=== PATIENT | male | born 1955 | race Caucasian/White ===

== ENCOUNTER 2019-09-28 08:14 | Outpatient (CLI) | payer MEDICARE, OTHER ==
[2019-09-29 16:49] LABS: SARS-CoV-2 MS2 Positive; SARS-CoV-2 N Gene Negative; SARS-CoV-2 S Gene Negative; SARS-CoV-2 orf1ab Negative
== END 2019-09-28 08:15 | disposition home or self-care (01) ==
LOC: LABBT 08:14
PROVIDERS: ATTEND Thoracic Surgery (Cardiothoracic Vascular Surgery)
DX: Z01.818 Encounter for other preprocedural examination (principal); Z11.59 Encounter for screening for other viral diseases; I25.10 Atherosclerotic heart disease of native coronary artery without angina pectoris
CPT/HCPCS: 93005; U0003; 87635; 93010

== ENCOUNTER 2019-09-28 12:30 | Inpatient (IN) | payer MEDICARE, OTHER ==
[2019-09-28 14:30] LABS: Hemoglobin 17.9 g/dL (14.0-18.0); Mean Corpuscular HGB CONC 33.8 g/dL (32.0-36.0); Mean Corpuscular Hemoglobin 31.4 pg (27.0-31.0); Mean Corpuscular Volume 92.8 fL (78.0-98.0); Mean Platelet Volume 8.3 fL (7.4-10.4); Platelet Count 220 thou/uL (130-400); RBC Distribution Width 12.5 % (11.5-14.5); Red Blood Cell (RBC) Count 5.69 mill/uL (4.70-6.10); White Blood Cell (WBC) Count 6.8 thou/uL (4.8-10.8)
[2019-09-28 14:58] LABS: Anion Gap 14 mmol/L (10-20); BUN (Urea Nitrogen) 41 mg/dL (8.4-25.7); Calc. Creatinine Clearance 0 mL/min (70-130); Calcium 10.2 mg/dL (7.8-10.44); Carbon Dioxide 27 mmol/L (23-31); Chloride 100 mmol/L (98-107); Estimated GFR-MDRD 38; Glucose 139 mg/dL (80-115); Potassium 3.7 mmol/L (3.5-5.1); Sodium 137 mmol/L (136-145)
[2019-10-02] MEDS ORDERED: Fentanyl 100 MCG/2 ML VIAL ONE (06:32)
[2019-10-02] MEDS ORDERED: Midazolam HCl 5 mg/5 ml Vial ONE (06:32)
[2019-10-02] MEDS ORDERED: Dexmedetomidine 200 MCG/2 ML VIAL ONE (06:32)
[2019-10-02] MEDS ORDERED: Midazolam HCl 2 mg/2 ml Vial ONE (06:32)
[2019-10-02] MEDS ORDERED: Vecuronium 10 MG VIAL ONE ×2 (06:32→09:41)
[2019-10-02] MEDS ORDERED: Albumin 5% 500 ML ONE (06:38)
[2019-10-02] MEDS ORDERED: Clindamycin/D5W 900 mg/50 ml Premix Bag ONE (07:08)
[2019-10-02] MEDS ORDERED: Levofloxacin 500 mg/D5W 100 ml Premix Bag ONE (07:08)
[2019-10-02] MEDS ORDERED: Heparin 10,000 UNITS/1 ML VIAL 30,000 UNITS in Sodium Chloride 0.9% 1,000 ML FS SCH (07:15)
[2019-10-02] MEDS ORDERED: Insulin Regular 300 UNITS/3 ML VIAL ONE (08:31)
[2019-10-02 08:55] VITALS: BMI 39.3
[2019-10-02] MEDS ORDERED: Thrombin 5000 UNITS/5 ML VIAL ONE (09:41)
[2019-10-02] MEDS ORDERED: Calcium Chloride 1 GM/10 ML Abboject SYRINGE ONE (09:41)
[2019-10-02] MEDS ORDERED: Lidocaine 2% PF 5 ML VIAL ONE (09:41)
[2019-10-02] MEDS ORDERED: Ketorolac Tromethamine 30 MG/ML VIAL ONE (09:41)
[2019-10-02] MEDS ORDERED: Papaverine 60 MG/2 ML VIAL ONE (09:41)
[2019-10-02] MEDS ORDERED: Nitroglycerin 50 MG/250 ML BOT ONE (09:41)
[2019-10-02] MEDS ORDERED: Aminocaproic Acid 5 GM/20 ML VIAL ONE (09:41)
[2019-10-02] MEDS ORDERED: Ondansetron PF 4 MG/2 ML Vial ONE (09:41)
[2019-10-02] MEDS ORDERED: Heparin 5,000 UNITS/ML VIAL ONE (09:41)
[2019-10-02] MEDS ORDERED: Lidocaine 1% PF 5 ML VIAL ONE ×2 (09:41)
[2019-10-02] MEDS ORDERED: Sodium Bicarb 50 MEQ/50 ML Abboject 8.4% SYRINGE ONE (09:41)
[2019-10-02] MEDS ORDERED: Protamine Sulfate 250 MG/25 ML VIAL ONE (09:41)
[2019-10-02] MEDS ORDERED: Glycopyrrolate 0.2 MG/ML 5 ML SYRINGE ONE (09:41)
[2019-10-02] MEDS ORDERED: Cardioplegic Soln 1,000 ML BAG ONE (09:41)
[2019-10-02] MEDS ORDERED: Magnesium Sulfate 1 GM/2 ML VIAL ONE (09:41)
[2019-10-02] MEDS ORDERED: Potassium Chloride 60 MEQ/30 ML VIAL ONE (09:41)
[2019-10-02] MEDS ORDERED: EPHEDRINE 25 MG/5 ML SYRINGE ONE (09:41)
[2019-10-02] MEDS ORDERED: PHENYLEPHRINE-NS 100 MCG/ML 10 ML SYRINGE ONE (09:41)
[2019-10-02] MEDS ORDERED: Heparin 30,000 units/30 ml VIAL ONE (09:41)
[2019-10-02] MEDS ORDERED: Promethazine HCl 25 MG/ML VIAL IM PRN (11:32)
[2019-10-02] MEDS ORDERED: Morphine 2 MG/ML SYRINGE SLOW IVP PRN (11:32)
[2019-10-02] MEDS ORDERED: Bisacodyl 5 MG TAB PO PRN (11:32)
[2019-10-02] MEDS ORDERED: niCARdipine 25 MG in Sodium Chloride 0.9% 250 ML 250 ML IVPB PRN (11:32)
[2019-10-02] MEDS ORDERED: Bisacodyl 10 MG SUPP PR PRN (11:32)
[2019-10-02] MEDS ORDERED: Norepinephrine 8 MG/0.9% NS 250 ML IVPB PRN (11:32)
[2019-10-02] MEDS ORDERED: Mag-Al 1200 mg/1200 mg/30 ML UDCUP PO PRN (11:32)
[2019-10-02] MEDS ORDERED: DOPamine 400 MG/D5W 250 ML 250 ML IVPB PRN (11:32)
[2019-10-02] MEDS ORDERED: Potassium Chloride 20 MEQ/100 ML PREMIX BAG IVPB PRN (11:32)
[2019-10-02] MEDS ORDERED: Nitroglycerin 50 MG/250 ML BOT 250 ML IVPB PRN (11:32)
[2019-10-02] MEDS ORDERED: Fentanyl 100 MCG/2 ML VIAL SLOW IVP PRN (11:32)
[2019-10-02] MEDS ORDERED: Acetaminophen 325 MG TAB PO PRN (11:32)
[2019-10-02] MEDS ORDERED: Post-Op Insulin Drip Protocol IVPB ONE (11:32)
[2019-10-02] MEDS ORDERED: hydrALAZINE 20 MG/ML VIAL SLOW IVP PRN (11:32)
[2019-10-02] MEDS ORDERED: Hetastarch 6% 500 ML 500 ML IVPB PRN (11:32)
[2019-10-02] MEDS ORDERED: Guaifenesin DM 100-10/5 ML UDCUP PO PRN (11:32)
[2019-10-02] MEDS ORDERED: Magnesium 2 GM/50 ML 2 GM in Premix Bag 1 BAG IVPB SCH (12:00)
[2019-10-02 12:12] LABS: #Eosinphils 0.1 thou/uL (0.0-0.7); #Lymphocytes 1.3 thou/uL (1.20-3.40); #Monocytes 0.7 thou/uL (0.11-0.59); #Neutrophils 7.4 thou/uL (1.40-6.50); %Basophils 0.3 % (0.0-1.0); %Eosinophils 0.8 % (0.0-10.0); %Lymphocytes 13.6 % (21.0-51.0); %Monocytes 7.7 % (0.0-10.0); %Neutrophils 77.6 % (42.0-75.0); Hemoglobin 15.4 g/dL (14.0-18.0); Mean Corpuscular HGB CONC 32.7 g/dL (32.0-36.0); Mean Corpuscular Hemoglobin 30.8 pg (27.0-31.0); Mean Corpuscular Volume 94.2 fL (78.0-98.0); Platelet Count 169 thou/uL (130-400); RBC Distribution Width 12.4 % (11.5-14.5); Red Blood Cell (RBC) Count 5.01 mill/uL (4.70-6.10); White Blood Cell (WBC) Count 9.5 thou/uL (4.8-10.8)
[2019-10-02] MEDS ORDERED: Albuterol Sulfate 2.5 mg/3 ml Neb NEB PRN (12:15)
[2019-10-02] MEDS ORDERED: Dextrose 50% Abboject 50 ML SYRINGE SLOW IVP PRN (12:15)
[2019-10-02] MEDS ORDERED: HUMULIN R 100 UNITS in Sodium Chloride 0.9% 100 ML IVPB SCH (12:15)
[2019-10-02] MEDS ORDERED: Dextrose 5% in Water 1,000 ML IV PRN (12:15)
[2019-10-02 12:16] LABS: INR-International Normal Ratio 1.1; Prothrombin Time 14.7 sec (12.0-14.7)
[2019-10-02 12:17] LABS: PTT 31.4 sec (22.9-36.1)
--- NOTE | 2019-10-02 12:25 | RAD ---
RADIOGRAPH CHEST 1 VIEW: DATE: 10/02/2019 HISTORY: 64-year-old male status post open heart surgery. COMPARISON: None FINDINGS: There is no airspace density, pulmonary edema, or pneumothorax. The lateral costophrenic angles are n ot effaced. Sternotomy wires. Right subclavian central venous catheter with tip in right atrium. Vertically oriented catheter, presumably chest tube, with upper tip overlying head of left clavicle a nd left lung apex. Widening of cardiac mediastinal silhouette IMPRESSION: 1. No acute pulmonary findings. 2. Right-sided central venous catheter. 3. Catheter with tip overlying left apex, perhaps representing a chest tube.
[2019-10-02 12:41] LABS: Anion Gap 10 mmol/L (10-20); BUN (Urea Nitrogen) 36 mg/dL (8.4-25.7); Calc. Creatinine Clearance 90 mL/min (70-130); Calcium 8.3 mg/dL (7.8-10.44); Carbon Dioxide 24 mmol/L (23-31); Chloride 107 mmol/L (98-107); Estimated GFR-MDRD 47; Glucose 95 mg/dL (80-115); Potassium 3.8 mmol/L (3.5-5.1); Sodium 137 mmol/L (136-145)
[2019-10-02] MEDS: Fentanyl 100 MCG/2 ML VIAL SLOW IVP PRN ×4 (12:57→22:36)
[2019-10-02] MEDS: Clindamycin/D5W 900 MG in Premix Bag 1 BAG IVPB SCH ×2 (12:58→19:50)
[2019-10-02] MEDS: Insulin Regular 300 UNITS/3 ML VIAL SC PRN ×2 (13:07→16:10)
[2019-10-02] MEDS: Sodium Chloride 0.9% 1,000 ML IV SCH (14:30)
[2019-10-02] MEDS: HYDROcodone/Acetaminophen 5/325 mg Tablet PO PRN ×2 (15:30→19:51)
--- NOTE | 2019-10-02 16:02 | OP ---
DATE OF PROCEDURE: 10/02/2019 PREOPERATIVE DIAGNOSIS: Coronary artery disease. PROCEDURE PERFORMED: Coronary artery bypass graft x2: Left internal mammary artery to a diagonal, both vessels are good size, saphenous vein nice quality to a nice quality 2-mm posterior descending artery. CENTRAL SUPPLY TECHNICIAN SUPERVISOR: Braden Quiroz MD TRANSFUSIONS: None. DESCRIPTION OF PROCEDURE: After adequate anesthesia had been obtained, the patient was prepped and draped. Dr. Quiroz harvested saphenous vein from the right lower leg by open procedure using greater saphenous vein and then I did perform a median sternotomy. Upon opening the sternum, the patient experienced asystole and some brief chest compressions and the patient resumed electrical activity. Following this, the left internal mammary artery was harvested, entering the left pleura at the apex. The patient was heparinized. The mammary divided distally. The thymus was divided and a hole in the pericardium was placed for transit of the mammary artery. Aorta and right atrium were cannulated and cardiopulmonary bypass begun. Aorta was cross-clamped, and after a liter of cold blood cardioplegia, 2 distal anastomoses were completed with 7-0 Prolene suture. Following this, the cross-clamp was removed and the partial occluding clamp placed and a single proximal venous anastomosis was performed and marked with a ring. Following this, the patient was weaned from cardiopulmonary bypass. Cannula was removed and protamine was given systemically. Temporary atrial wires were placed and ventricular wires were placed, but not utilized. Mediastinal and left pleural drains were placed, following which the sternum was reapproximated with a combination of #7 interrupted wire and 3 zip ties. Vancomycin paste was used on the sternal edges, platelet-rich blood and platelet-poor plasma. Subcutaneous tissue and skin were closed in layers. Job ID: [id number]
--- NOTE | 2019-10-02 16:39 | EKG ---
Test Reason : S/P CABG Blood Pressure : / mmHG Vent. Rate : 055 BPM Atrial Rate : 045 BPM P-R Int : 188 ms QRS Dur : 078 ms QT Int : 424 ms P-R-T Axes : 010 055 073 degrees QTc Int : 405 ms Sinus bradycardia with frequent AV dual-paced complexes Abnormal ECG When compared with ECG of 28-SEP-2019 13:45, (Unconfirmed) Electronic ventricular pacemaker has replaced Sinus rhythm Confirmed by MASHA WALL ([id number]) on 10/02/2019 4:39:07 PM Referred By: SIMI Confirmed By:MASHA WALL
[2019-10-02 17:20] LABS: Hemoglobin 16.2 g/dL (14.0-18.0)
[2019-10-02 17:32] LABS: Potassium 5.4 mmol/L (3.5-5.1)
--- NOTE | 2019-10-02 19:21 | PRG ---
DATE OF SERVICE: 10/02/2019 PRIMARY REPORT DEVELOPER: Dr. Bienvenido Wood. SUBJECTIVE: Mr. Burciaga underwent coronary artery bypass grafting today. He did develop periods of extremely low heart rate, even some asystole. Now, he is AV pacing, actually the atrium does not appear to be capturing, but the ventricle is capturing. I did turn down the pacemaker rate to below 60 and it looks like he is mostly in sinus rhythm at 62 with some pauses. OBJECTIVE: LUNGS: Clear. CARDIAC: Normal S1, normal S2. ABDOMEN: Soft and nontender. EXTREMITIES: No edema. ASSESSMENT: Episodes of bradycardia, early postoperatively. PLAN: He will be paced tonight. Tomorrow morning, we will reduce the pacing rate and recheck the electrical system again. Job ID: [id number]
[2019-10-02] MEDS: Ondansetron PF 4 MG/2 ML Vial IVP PRN (20:20)
[2019-10-03] MEDS: Fentanyl 100 MCG/2 ML VIAL SLOW IVP PRN ×4 (00:57→18:09)
[2019-10-03] MEDS: Ondansetron PF 4 MG/2 ML Vial IVP PRN (01:02)
[2019-10-03] MEDS: Clindamycin/D5W 900 MG in Premix Bag 1 BAG IVPB SCH ×2 (01:05→07:42)
[2019-10-03] MEDS: Sodium Chloride 0.9% 1,000 ML IV SCH ×3 (01:26→06:48)
[2019-10-03 04:23] LABS: #Monocytes 1.1 thou/uL (0.11-0.59); #Neutrophils 8.3 thou/uL (1.40-6.50); %Basophils 0.1 % (0.0-1.0); %Eosinophils 0.3 % (0.0-10.0); %Lymphocytes 9.4 % (21.0-51.0); %Monocytes 10.6 % (0.0-10.0); %Neutrophils 79.6 % (42.0-75.0); Hemoglobin 15.2 g/dL (14.0-18.0); Mean Corpuscular HGB CONC 32.3 g/dL (32.0-36.0); Mean Corpuscular Hemoglobin 30.3 pg (27.0-31.0); Mean Corpuscular Volume 93.8 fL (78.0-98.0); Mean Platelet Volume 8.7 fL (7.4-10.4); Platelet Count 206 thou/uL (130-400); RBC Distribution Width 12.6 % (11.5-14.5); Red Blood Cell (RBC) Count 5.01 mill/uL (4.70-6.10); White Blood Cell (WBC) Count 10.4 thou/uL (4.8-10.8)
[2019-10-03 04:42] LABS: Anion Gap 12 mmol/L (10-20); BUN (Urea Nitrogen) 32 mg/dL (8.4-25.7); Calc. Creatinine Clearance 75 mL/min (70-130); Calcium 8.6 mg/dL (7.8-10.44); Carbon Dioxide 26 mmol/L (23-31); Chloride 104 mmol/L (98-107); Estimated GFR-MDRD 39; Glucose 137 mg/dL (80-115); Sodium 138 mmol/L (136-145)
--- NOTE | 2019-10-03 07:37 | RAD ---
Chest one view HISTORY: Heart surgery. Follow-up. COMPARISON: 10/02/2019. FINDINGS: Cardiac silhouette is magnified and enlarged. Pulmonary vasculature is upper limits of norm al and accentuated by shallow inspiration. Patient is slightly rotated leftward. Postoperative changes are again demonstrated. Lines and tubes appear unchanged in position. Vertically oriented met allic bars over the left upper mediastinum are favored to represent an external monitoring device. Multiple additional wires overlie the chest. Mild atelectasis at the left lung base. Left base partially excluded from the image. No evidence of pneumothorax. Postoperative changes right shoulder apparent. IMPRESSION : Stable postoperative appearance of the chest.
[2019-10-03] MEDS: HYDROcodone/Acetaminophen 5/325 mg Tablet PO PRN ×4 (07:43→20:40)
[2019-10-03] MEDS: Glimepiride 2 MG TAB PO SCH (07:43)
[2019-10-03] MEDS: Fenofibrate Nanocrystallized 145 MG TAB PO SCH (07:44)
[2019-10-03] MEDS: Aspirin 325 MG TAB PO SCH (07:44)
--- NOTE | 2019-10-03 08:52 | PRG ---
DATE OF SERVICE: 10/03/2019 SUBJECTIVE: Mr. Burciaga is sitting up in a chair. He is no longer requiring pacing. OBJECTIVE: VITAL SIGNS: Blood pressure is 130/79, pulse is 80 and sinus. LUNGS: Clear. CARDIAC: Normal S1, normal S2. ABDOMEN: Obese, nontender. EXTREMITIES: Mild edema. ASSESSMENT: 1. Status post bypass surgery x2. 2. Episode of severe bradycardia with asystole yesterday early postoperatively, now he is off the pacemaker, doing well on his own, with a narrow QRS. PLAN: Hold beta blockers for now. Angiotensin receptor blockers if needed for high blood pressure. Consider valsartan 40-80 mg twice a day. Job ID: [id number] MTDD
[2019-10-03] MEDS ORDERED: Famotidine/PF 20 mg/2ml Vial SLOW IVP SCH (09:00)
[2019-10-03] MEDS ORDERED: Insulin Glargine 20 UNITS in Pre-Filled Syringe 1 EACH SC SCH (12:45)
[2019-10-03] MEDS: Insulin Regular 300 UNITS/3 ML VIAL SC PRN ×2 (16:33→21:45)
[2019-10-03] MEDS: Valsartan 80 MG TAB PO SCH (18:32)
--- NOTE | 2019-10-03 18:56 | CON ---
DATE OF CONSULTATION: 10/03/2019 HISTORY OF PRESENT ILLNESS: Mr. Burciaga is a very pleasant 64-year-old male. For many, many years, my partner and I took care of his sister, Dinorah Mcgee. Actually, I had a very pleasant interaction with him talking about his sister, who was probably one of the most resilient patients I have ever had in the face of multiple medical adversities. Mr. Burciaga has undergone coronary artery bypass grafting and is clinically stable at this time. I was consulted because of his presence in critical care unit. Postoperatively, he did have severe bradycardia, but he is not paced at this time. PAST MEDICAL HISTORY: 1. Remarkable for former smoking, although he says he has never been told he had asthma or COPD. 2. History of obesity. FAMILY HISTORY: Negative for lung disease in early age. REVIEW OF SYSTEMS: Otherwise negative. PHYSICAL EXAMINATION: VITAL SIGNS: Heart rate is 77, respiratory rate is 18, oximetry is 100% on room air, and blood pressure is 140/77. HEENT: Pupils are equal. Sclerae are anicteric. NECK: Supple. No lymphadenopathy. LUNGS: Clear. HEART: Regular rhythm. ABDOMEN: Soft and nontender. EXTREMITIES: Without clubbing, cyanosis or edema. LABORATORY DATA: White count 10.4, hemoglobin 15.2, and platelets 206,000. Electrolytes are normal. Creatinine is 1.79, it is 1.83 on the 5th. IMPRESSION: 1. Status post coronary artery bypass grafting. 2. Postoperative bradycardia, requiring temporary pacing. 3. Chronic kidney disease, it appears to be stable. 4. Obesity. 5. Distant history of smoking. I would be happy to follow with the other physicians caring for him during my visit with him. This is a 70-minute consult, 50% of the time spent on the unit coordinating care. Job ID: [id number] MTDD
[2019-10-03] MEDS: Atorvastatin Calcium 20 MG TAB PO SCH (20:41)
[2019-10-03] MEDS ORDERED: cloNIDine 0.1 MG TAB PO SCH (21:00)
[2019-10-04] MEDS: HYDROcodone/Acetaminophen 5/325 mg Tablet PO PRN ×5 (02:05→22:05)
[2019-10-04] MEDS: Sodium Chloride 0.9% 1,000 ML IV SCH (03:15)
[2019-10-04 04:04] LABS: #Monocytes 1.2 thou/uL (0.11-0.59); #Neutrophils 6.3 thou/uL (1.40-6.50); %Basophils 0.4 % (0.0-1.0); %Eosinophils 0.6 % (0.0-10.0); %Monocytes 13.4 % (0.0-10.0); %Neutrophils 73.6 % (42.0-75.0); Hemoglobin 14.3 g/dL (14.0-18.0); Mean Corpuscular HGB CONC 30.9 g/dL (32.0-36.0); Mean Corpuscular Hemoglobin 29.2 pg (27.0-31.0); Mean Corpuscular Volume 94.5 fL (78.0-98.0); Mean Platelet Volume 8.4 fL (7.4-10.4); Platelet Count 174 thou/uL (130-400); RBC Distribution Width 12.7 % (11.5-14.5); White Blood Cell (WBC) Count 8.6 thou/uL (4.8-10.8)
[2019-10-04 04:23] LABS: Anion Gap 10 mmol/L (10-20); BUN (Urea Nitrogen) 25 mg/dL (8.4-25.7); Calc. Creatinine Clearance 78 mL/min (70-130); Calcium 8.5 mg/dL (7.8-10.44); Carbon Dioxide 28 mmol/L (23-31); Chloride 104 mmol/L (98-107); Estimated GFR-MDRD 38; Glucose 153 mg/dL (80-115); Potassium 3.7 mmol/L (3.5-5.1); Sodium 138 mmol/L (136-145)
[2019-10-04] MEDS ORDERED: Nitroglycerin 0.4 MG TAB (25 Tab Bottle) SL PRN (06:33)
[2019-10-04] MEDS ORDERED: Guaifenesin DM 100-10/5 ML UDCUP PO PRN (06:33)
[2019-10-04] MEDS ORDERED: Mineral Oil ENEMA PR PRN (06:33)
[2019-10-04] MEDS ORDERED: Dextrose 50% Abboject 50 ML SYRINGE SLOW IVP PRN (06:36)
[2019-10-04] MEDS ORDERED: Dextrose 5% in Water 1,000 ML IV PRN (06:36)
[2019-10-04] MEDS: Insulin Regular 300 UNITS/3 ML VIAL SC PRN ×2 (06:53→11:22)
--- NOTE | 2019-10-04 07:44 | RAD ---
Exam: Chest one view HISTORY:Status post open heart surgery Comparison: 10/03/2019 FINDINGS: Lines and tubes: Stable sternotomy wires, right-sided vascular catheter. Stable epicardial pacing wir es. Cardiac silhouette: Normal Aorta: Unremarkable Pulmonary vessels: Normal Costophrenic angles: Small left-sided pleural effusion. LUNGS: No masses or consolidation. Pneumothorax: None Osseous abnormalities: None IMPRESSION: Findings compatible with recent open heart surgery. No significant change.
[2019-10-04] MEDS: Aspirin 325 MG TAB PO SCH (08:06)
[2019-10-04] MEDS: Valsartan 80 MG TAB PO SCH ×2 (08:06→20:25)
[2019-10-04] MEDS: Famotidine 20 MG TAB PO SCH ×2 (08:06→20:25)
[2019-10-04] MEDS: Furosemide 40 MG TAB PO SCH (08:06)
[2019-10-04] MEDS: Glimepiride 2 MG TAB PO SCH (08:06)
[2019-10-04] MEDS: Fenofibrate Nanocrystallized 145 MG TAB PO SCH (08:06)
[2019-10-04] MEDS: Polyethylene Glycol 3350 17 GM Packet PO SCH (08:06)
--- NOTE | 2019-10-04 09:43 | PRG ---
DATE OF SERVICE: 10/04/2019 SUBJECTIVE: Mr. Burciaga is doing fine. He has had no further low heart rates. He is sitting up in the chair, breathing well. OBJECTIVE: VITAL SIGNS: Blood pressure 136/78, pulse is 85 and sinus. LUNGS: Clear. CARDIAC: Normal S1. Normal S2. ABDOMEN: Soft, nontender. He is obese. EXTREMITIES: No clubbing or cyanosis. There is mild edema. PERTINENT LABORATORY DATA: Creatinine is stable at 1.8, it has gone as high as 3.3 back in 2019. ASSESSMENT: 1. Status post bypass surgery. 2. Severe bradycardia, immediately postoperative, that is resolved. 3. Hypertension. 4. Previously, was on metoprolol 150 mg a day also apparently received morning of the bypass surgery. PLAN: 1. He is on valsartan 80 mg twice a day; in view of renal insufficiency, we probably would not go higher. 2. We will reinstitute very low-dose beta paul, Coreg will give more blood pressure reduction with less bradycardia. 3. He is on Lasix. 4. If needed, could add some amlodipine. Job ID: [id number] [facility]
--- NOTE | 2019-10-04 12:02 | PRG ---
DATE OF SERVICE: 10/04/2019 SUBJECTIVE: Dano Burciaga is in no distress. OBJECTIVE: VITAL SIGNS: Heart rate is in the 70s, blood pressure 159/87, respiratory rate in the 20s. GENERAL: He is sitting up in a chair. He says his chest feels better today. LUNGS: Clear. HEART: Regular rhythm. ABDOMEN: Soft. EXTREMITIES: Without edema. LABORATORY DATA: White count 8.6, hemoglobin 14.3, platelets 174. Sodium 138, potassium 3.7, chloride 104, bicarb 28, BUN 25, creatinine 1.8. IMPRESSION: 1. Status post coronary artery bypass grafting, clinically stable. 2. Obesity, ? sleep apnea. 3. Distant tobacco. PLAN: Continue supportive care. He will probably transfer out of critical care today. Job ID: [id number]
[2019-10-04] MEDS ORDERED: Carvedilol 3.125 MG TAB PO SCH (17:00)
[2019-10-04] MEDS: Atorvastatin Calcium 20 MG TAB PO SCH (20:25)
[2019-10-05] MEDS: HYDROcodone/Acetaminophen 5/325 mg Tablet PO PRN ×5 (01:43→22:33)
[2019-10-05 04:43] LABS: Anion Gap 10 mmol/L (10-20); BUN (Urea Nitrogen) 24 mg/dL (8.4-25.7); Calc. Creatinine Clearance 85 mL/min (70-130); Calcium 8.6 mg/dL (7.8-10.44); Carbon Dioxide 28 mmol/L (23-31); Chloride 101 mmol/L (98-107); Estimated GFR-MDRD 39; Glucose 189 mg/dL (80-115); Potassium 3.7 mmol/L (3.5-5.1); Sodium 135 mmol/L (136-145)
[2019-10-05] MEDS: Insulin Regular 300 UNITS/3 ML VIAL SC PRN ×3 (06:37→21:14)
--- NOTE | 2019-10-05 08:27 | PRG ---
DATE OF SERVICE: 10/05/2019 The patient is afebrile; however, his blood pressure still in the 150 range for the most part. His heart rate is in the 70s and he was started on low-dose Coreg yesterday by Dr. Morales. He has no complaints today except some constipation. He rested relatively well last night. His lungs are clear. His chest dressing is dry. Plans for today are further ambulation, shower, and continued diuresis. Anticipate discharge this weekend. Job ID: [id number]
--- NOTE | 2019-10-05 08:44 | PRG ---
DATE OF SERVICE: 10/05/2019 SUBJECTIVE: Mr. Burciaga is up walking in the halls. Feels well. No complaints. He has no bradycardia. OBJECTIVE: VITAL SIGNS: Blood pressure 139/65, pulse 74 and regular. LUNGS: Clear. CARDIAC: Normal S1, normal S2. ABDOMEN: Soft, obese, nontender. EXTREMITIES: No edema. ASSESSMENT: 1. Status post bypass surgery. 2. Some bradycardia, just early postop, but no recurrence. 3. Hypertension. PLAN: 1. He is on Coreg, increased dose to 6.25 mg twice a day, would not go higher. 2. Furosemide 40 mg a day. 3. Valsartan 80 mg twice a day. 4. Amlodipine 5 mg a day. 5. Aspirin. 6. He will be followed up with Dr. Wood as an outpatient. Dr. Olmstead will see the patient this weekend. 7. Creatinine is stable at 1.78, tolerating low-dose angiotensin receptor blockers. Job ID: [id number]
[2019-10-05] MEDS: Valsartan 80 MG TAB PO SCH ×2 (09:52→21:13)
[2019-10-05] MEDS: Glimepiride 2 MG TAB PO SCH (09:52)
[2019-10-05] MEDS: Milk Of Magnesia 30 ML UDCUP PO PRN (09:52)
[2019-10-05] MEDS: Fenofibrate Nanocrystallized 145 MG TAB PO SCH (09:54)
[2019-10-05] MEDS: Amlodipine 5 MG TAB PO SCH (09:54)
[2019-10-05] MEDS: Famotidine 20 MG TAB PO SCH ×2 (09:54→21:13)
[2019-10-05] MEDS: Furosemide 40 MG TAB PO SCH (09:54)
[2019-10-05] MEDS: Carvedilol 3.125 MG TAB PO SCH ×2 (09:54→17:46)
[2019-10-05] MEDS: Aspirin 325 MG TAB PO SCH (09:55)
[2019-10-05] MEDS: Polyethylene Glycol 3350 17 GM Packet PO SCH (10:08)
--- NOTE | 2019-10-05 14:25 | PRG ---
DATE OF SERVICE: 10/05/2019 SUBJECTIVE: Dano Burciaga is doing great. He has walked several 100 feet. Denies having any dyspnea. OBJECTIVE: VITAL SIGNS: He is afebrile, heart rate 77, respiratory rate 20, oximetry is 95% to 98% on room air, and blood pressure 132/73. LUNGS: Clear. HEART: Regular rhythm. ABDOMEN: Soft and nontender. EXTREMITIES: Without edema. LABORATORY DATA: White count was 8.6 yesterday. Sodium 135, potassium 3.7, chloride 101, bicarb 28, BUN 24, creatinine 1.78, which is down from 1.81 yesterday, which is close to his baseline. IMPRESSION: 1. Status post coronary artery bypass grafting. 2. Acute on chronic kidney disease, stable. 3. Diabetes. 4. Obesity. He is instructed to get on a low-carb diet. Since he is clinically doing well, we will be available as needed. We will sign off today. I will be happy to help him as an outpatient should he develop any respiratory issues. He improved rapidly with one nebulizer treatment and I doubt, he has any COPD that would require any long-term treatment with any inhaled medications. Job ID: [id number]
[2019-10-05] MEDS ORDERED: Carvedilol 6.25 MG TAB PO SCH (17:30)
[2019-10-05] MEDS ORDERED: Insulin Glargine 10 UNITS in Pre-Filled Syringe 1 EACH SC SCH (21:00)
[2019-10-05] MEDS: Atorvastatin Calcium 20 MG TAB PO SCH (21:12)
[2019-10-06] MEDS: HYDROcodone/Acetaminophen 5/325 mg Tablet PO PRN ×3 (02:22→10:37)
[2019-10-06 05:13] LABS: Anion Gap 12 mmol/L (10-20); BUN (Urea Nitrogen) 21 mg/dL (8.4-25.7); Calc. Creatinine Clearance 86 mL/min (70-130); Calcium 8.7 mg/dL (7.8-10.44); Carbon Dioxide 29 mmol/L (23-31); Chloride 100 mmol/L (98-107); Estimated GFR-MDRD 43; Glucose 161 mg/dL (80-115); Potassium 3.5 mmol/L (3.5-5.1); Sodium 137 mmol/L (136-145)
[2019-10-06] MEDS: Insulin Regular 300 UNITS/3 ML VIAL SC PRN ×2 (06:28→12:03)
[2019-10-06] MEDS ORDERED: Carvedilol 6.25 MG TAB PO SCH (08:00)
[2019-10-06 08:04] VITALS: TEMP 98.9
[2019-10-06] MEDS: Aspirin 325 MG TAB PO SCH (10:02)
[2019-10-06] MEDS: Glimepiride 2 MG TAB PO SCH (10:02)
[2019-10-06] MEDS: Polyethylene Glycol 3350 17 GM Packet PO SCH (10:02)
[2019-10-06] MEDS: Furosemide 40 MG TAB PO SCH (10:03)
[2019-10-06] MEDS: Amlodipine 5 MG TAB PO SCH (10:03)
[2019-10-06] MEDS: Valsartan 80 MG TAB PO SCH (10:03)
[2019-10-06] MEDS: Famotidine 20 MG TAB PO SCH (10:03)
[2019-10-06] MEDS: Milk Of Magnesia 30 ML UDCUP PO PRN (10:04)
[2019-10-06] MEDS: Fenofibrate Nanocrystallized 145 MG TAB PO SCH (12:03)
[2019-10-06 13:07] VITALS: BP 143/71
[2019-10-06] MEDS ORDERED: Atorvastatin Calcium 40 MG TAB PO SCH (21:00)
--- NOTE | 2019-10-09 05:32 | PQF ---
BOB GIRON THOMAS MD [id number] CLINICAL DOCUMENTATION CLARIFICATION FORM: POST DISCHARGE Addendum to original discharge summary date: ____ Late entry note date: __ DATE: 10/09/2019 ATTN:Vahid Rubin Please exercise your independent, professional judgment in responding to the clarification form. Clinical indicators are provided on the bottom of this form for your review Please check appropriate box(s): [ ] Asystole as a complication or recent CABG [ ] Asystole not a complication or recent CABG [ ] Other diagnosis [ ] Unable to determine CLINICAL INDICATORS - SIGNS / SYMPTOMS / LABS PN 10/02 "Episode of severe bradycardia with asystole" PN 10/02 "narrow QRS" PN 10/01 "Episodes of bradycardia early postoperatively" PN 10/01 "Underwent CABG" Vital Sign Pulse: 10/02=76 10/03=80 10/05=69 Vital Sign BP: 10/0291=266/88 10/0468=379/79 RISK FACTORS CAD-HP 10/01 Obesity-HP 10/01 Hx smoker-HP 10/01 HTN-HP 10/01 CKD-HP 10/01 DM-HP 10/01 64 years old male-HP 10/01 s/p CABG-OP Note 10/01 TREATMENT: Electrocardiogram-Collected 10/01 Cardiology consult-Consult 10/02 IVF-MAR 10/01 Temporary pacing-Consult 10/02 (This form is maintained as a part of the permanent medical record) 2014 [employer] All Rights Reserved [email or web address] [phone] MTDD
== END 2019-10-06 12:50 | disposition home or self-care (01) | DRG 235 ==
LOC: SURG A 10-02 05:53 → CCU 10-02 11:49 → 2NO 10-04 12:36
PROVIDERS: ADMIT Thoracic Surgery (Cardiothoracic Vascular Surgery); ATTEND Thoracic Surgery (Cardiothoracic Vascular Surgery)
PROC: 02100Z9 Bypass Coronary Artery, One Artery from Left Internal Mammary, Open Approach (ICD-10-PCS; principal; 2019-10-02)
PROC: 021009W Bypass Coronary Artery, One Artery from Aorta with Autologous Venous Tissue, Open Approach (ICD-10-PCS; 2019-10-02)
PROC: 06BP0ZZ Excision of Right Saphenous Vein, Open Approach (ICD-10-PCS; 2019-10-02)
PROC: 5A1221Z Performance of Cardiac Output, Continuous (ICD-10-PCS; 2019-10-02)
DX: I25.10 Atherosclerotic heart disease of native coronary artery without angina pectoris (principal); I46.9 Cardiac arrest, cause unspecified; N17.9 Acute kidney failure, unspecified; Z68.41 Body mass index [BMI] 40.0-44.9, adult; Z11.59 Encounter for screening for other viral diseases; E66.9 Obesity, unspecified; E78.2 Mixed hyperlipidemia; G47.30 Sleep apnea, unspecified; E11.22 Type 2 diabetes mellitus with diabetic chronic kidney disease; N18.9 Chronic kidney disease, unspecified; I12.9 Hypertensive chronic kidney disease with stage 1 through stage 4 chronic kidney disease, or unspecified chronic kidney disease; Z79.84 Long term (current) use of oral hypoglycemic drugs; Z79.82 Long term (current) use of aspirin; Z79.51 Long term (current) use of inhaled steroids; Z79.899 Other long term (current) drug therapy; Z85.528 Personal history of other malignant neoplasm of kidney; Z85.828 Personal history of other malignant neoplasm of skin; Z88.0 Allergy status to penicillin
CPT/HCPCS: 36415; 36416; 36430; 71045; 80048; 85025; 85027; 85610; 85730; 86850; 86900; 86901; 93005; 93010; 93798; 94640; J0360; J1265; J1642; J1644; J1815; J1885; J1956; J2001; J2250; J2405; J2440; J2550; J2720; J3010; J3370; J3475; J3480; J3490; J7620; P9045; S0017; S0028

== ENCOUNTER 2020-02-18 10:20 | Outpatient (CLI) | payer MEDICARE ==
--- NOTE | 2020-02-18 12:20 | MRI ---
EXAM: MRA Angio Neck W/O Contrast PROVIDED CLINICAL HISTORY: Occlusion/stenosis left internal carotid artery. COMPARISON: Ultrasound examination on 01/31/2020 FINDINGS: Post contrast MRA imaging was unable to be performed secondary to patient's renal insufficiency. As a result, MRA without contrast was performed with 3-D [id number] images and reconstructions. There is eccentric atherosclerotic plaque seen in the left common carotid artery. There is critical s tenosis/near occlusion of the proximal left internal carotid artery with flow related enhancement of the mid and distal left internal carotid artery. However, the mid and distal left internal carotid artery are diminutive in caliber. No appreciable flow related signal is seen in the most distal left ICA and involving the petrous portion of the left ICA suggesting critical stenosis or occlusion at this level. Ultrasound examination provided for comparison demonstrates a significantly elevated peak systolic velocity in the left ICA suggesting a greater than 70% stenosis and near occlusion of t he proximal right internal carotid artery, but arterial waveforms are seen within the mid and distal left internal carotid artery. Grossly normal signal significant flow related enhancement is seen within the right common carotid ar oliverio as well as right internal carotid artery and visualized bilateral vertebral arteries. IMPRESSION: 1. Near occlusion of the proximal left internal carotid artery. There is flow related signal seen in the mid and distal left internal carotid artery; although, the diameter of the mid and distal left ICA are diminutive. Appreciable flow in the most distal left ICA at the base of the skull and involvi ng the petrous portion of the left ICA is not appreciated likely due to severe narrowing or near occlusion at this level. 2. Right internal carotid artery as well as bilateral vertebral arteries where visualized appear norris afng.
== END 2020-02-18 10:21 | disposition home or self-care (01) ==
LOC: BICMRI 10:20
PROVIDERS: ATTEND Thoracic Surgery (Cardiothoracic Vascular Surgery)
DX: I65.22 Occlusion and stenosis of left carotid artery (principal)
CPT/HCPCS: 70547; 82565

== ENCOUNTER 2020-02-29 06:01 | Day surgery (SDC) | payer MEDICARE ==
[2020-02-28 10:29] VITALS: BMI 41.5
--- NOTE | 2020-02-29 09:19 | OP ---
DATE OF PROCEDURE: 02/29/2020 PREOPERATIVE DIAGNOSIS: Left carotid stenosis. POSTOPERATIVE DIAGNOSIS: Left carotid stenosis. PROCEDURE PERFORMED: Left carotid angiography. ANESTHESIA: 1% lidocaine. CONTRAST: 12 mL. FLUORO: 2.1 minutes. DESCRIPTION OF PROCEDURE: After prepping and draping, right common femoral artery was punctured with ultrasound guidance. Following placement of a 5-Telugu dilator and sheath, the wire and Douglass catheter were advanced into the aortic arch. Initial cannulation of the subclavian artery was performed and then this was remobilized and entered the left common carotid artery. Angiograms of the carotid artery in extracranial and intracranial were obtained with the findings of a redundant left internal carotid artery with an 80% to 90% proximal stenosis and no significant distal disease into the intracranial section. The catheter was removed. Angiograms of the right groin obtained and then a ProGlide was used to control bleeding in the groin. Patient tolerated the procedure. Job ID: [id number]
[2020-02-29] MEDS ORDERED: Iopamidol 370 76% 50 ML VIAL FS ONE (13:16)
== END 2020-02-29 11:29 | disposition home or self-care (01) ==
LOC: SDC 06:01
PROVIDERS: ATTEND Thoracic Surgery (Cardiothoracic Vascular Surgery)
PROC: 03HJ3DZ Insertion of Intraluminal Device into Left Common Carotid Artery, Percutaneous Approach (ICD-10-PCS; principal; 2020-02-29)
DX: I65.22 Occlusion and stenosis of left carotid artery (principal); E11.51 Type 2 diabetes mellitus with diabetic peripheral angiopathy without gangrene; I10 Essential (primary) hypertension; I25.10 Atherosclerotic heart disease of native coronary artery without angina pectoris; G47.30 Sleep apnea, unspecified; Z87.891 Personal history of nicotine dependence; Z79.4 Long term (current) use of insulin; Z79.82 Long term (current) use of aspirin; Z79.899 Other long term (current) drug therapy; Z88.0 Allergy status to penicillin
CPT/HCPCS: 36215; 36222; 76942; 80048; 82570; 84156; C1760; 36415; J1644; Q9967

== ENCOUNTER 2020-03-06 07:08 | Outpatient (CLI) | payer MEDICARE ==
[2020-02-26 16:55] LABS: Hemoglobin 16.2 g/dL (14.0-18.0); Mean Corpuscular HGB CONC 33.3 G/DL (32.0-36.0); Mean Corpuscular Hemoglobin 30.2 PG (27.0-33.0); Mean Corpuscular Volume 90.9 fl (80.0-100.0); Mean Platelet Volume 10.4 fl (7.4-10.4); Platelet Count 263 10x3/uL (130-400); RBC Distribution Width 12.7 % (11.5-14.5); Red Blood Cell (RBC) Count 5.36 10x6/uL (4.40-5.80); White Blood Cell (WBC) Count 5.7 10x3/uL (4.5-11.0)
[2020-02-26 17:12] LABS: Anion Gap 16 mmol/L (10-20); BUN (Urea Nitrogen) 43 mg/dL (8.4-25.7); Calc. Creatinine Clearance 0 mL/min (70-130); Carbon Dioxide 24 mmol/L (23-31); Chloride 100 mmol/L (98-107); Estimated GFR-MDRD 38; Glucose 238 mg/dL (80-115); Potassium 4.4 mmol/L (3.5-5.1); Sodium 136 mmol/L (136-145)
[2020-02-27 12:59] LABS: SARS-CoV-2 MS2 Positive; SARS-CoV-2 N Gene Negative; SARS-CoV-2 S Gene Negative; SARS-CoV-2 by NAA Not Detected (NotDetected); SARS-CoV-2 orf1ab Negative
[2020-03-06 16:17] LABS: Hemoglobin 15.8 g/dL (14.0-18.0); Mean Corpuscular HGB CONC 33.8 G/DL (32.0-36.0); Mean Corpuscular Hemoglobin 30.5 PG (27.0-33.0); Mean Corpuscular Volume 90.3 fl (80.0-100.0); Mean Platelet Volume 10.3 fl (7.4-10.4); Platelet Count 282 10x3/uL (130-400); RBC Distribution Width 12.5 % (11.5-14.5); Red Blood Cell (RBC) Count 5.18 10x6/uL (4.40-5.80); White Blood Cell (WBC) Count 6.7 10x3/uL (4.5-11.0)
[2020-03-06 17:49] LABS: Anion Gap 17 mmol/L (10-20); BUN (Urea Nitrogen) 42 mg/dL (8.4-25.7); Calc. Creatinine Clearance 0 mL/min (70-130); Calcium 9.8 mg/dL (7.8-10.44); Carbon Dioxide 26 mmol/L (23-31); Chloride 101 mmol/L (98-107); Estimated GFR-MDRD 35; Glucose 203 mg/dL (80-115); Potassium 4.7 mmol/L (3.5-5.1); Sodium 139 mmol/L (136-145)
[2020-03-07 14:39] LABS: SARS-CoV-2 MS2 Positive; SARS-CoV-2 N Gene Negative; SARS-CoV-2 S Gene Negative; SARS-CoV-2 by NAA Not Detected (NotDetected); SARS-CoV-2 orf1ab Negative
== END 2020-03-06 07:09 | disposition home or self-care (01) ==
LOC: LABBT 07:08
PROVIDERS: ATTEND Thoracic Surgery (Cardiothoracic Vascular Surgery)
DX: Z01.812 Encounter for preprocedural laboratory examination (principal); Z20.828 Contact with and (suspected) exposure to other viral communicable diseases; I65.22 Occlusion and stenosis of left carotid artery
CPT/HCPCS: 80048 ×2; 85027 ×2; U0003 ×2; 87635

== ENCOUNTER 2020-03-06 15:15 | Inpatient (IN) | payer MEDICARE ==
[2020-03-10 15:03] VITALS: BMI 41.5
--- NOTE | 2020-03-10 22:51 | HP ---
SUBJECTIVE: This is a 64-year-old gentleman who underwent coronary bypass grafting about 5 months ago. He was noted at that time to have a critical left internal carotid artery stenosis and a subsequent angiogram confirmed a high-grade carotid lesion on the left with redundant internal carotid artery. The MRA suggested distal disease, however, I think due to the very tortuous vessel, this was anomalously reported as diseased. PAST MEDICAL HISTORY: Includes chronic kidney disease stage 4, dyslipidemia, type 2 diabetes mellitus, obesity, history of thoracic aortic aneurysm. PAST SURGICAL HISTORY: Includes appendectomy, vasectomy, shoulder surgery on 2 occasions, ureteral stent, right nephrectomy, left kidney ablations, previous TURP. SOCIAL HISTORY: He is a nonsmoker. . 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 He did smoke 2 packs a day, but stopped about 12 years ago. CURRENT MEDICATIONS: Include; 1. Aspirin 81 a day. 2. Norvasc 5 b.i.d. 3. Coreg 6.25 b.i.d. 4. Glimepiride 1 mg daily. 5. Atorvastatin 20 a day. 6. Allopurinol 200 a day. 7. Fenofibrate 145 a day. 8. Losartan 50 b.i.d. 9. Lasix 40 daily. 10. Pepcid 10 b.i.d. 11. Tresiba 50 units at bedtime. ALLERGIES: TO PENICILLIN. PHYSICAL EXAMINATION: GENERAL: Alert, cooperative gentleman, in no distress. 5 feet 10 inches, 296 pounds. VITAL SIGNS: Blood pressure 148/78, heart rate 67. NECK EXAMINATION: No carotid bruits. CARDIAC: Regular rate and rhythm. No murmurs. LUNGS: Clear to auscultation. Sternum well healed, stable. EXTREMITIES: No peripheral edema. PLAN: At this time is left carotid endarterectomy and informed consent has been obtained. Job ID: [id number]
[2020-03-11] MEDS ORDERED: Heparin 5,000 UNITS/ML VIAL ONE (06:33)
[2020-03-11] MEDS ORDERED: Protamine Sulfate 50 MG/5 ML VIAL ONE (06:33)
[2020-03-11] MEDS ORDERED: Phenylephrine 10 MG/ML VIAL ONE (06:48)
[2020-03-11] MEDS ORDERED: Fentanyl 100 MCG/2 ML VIAL ONE ×5 (06:48→13:23)
[2020-03-11] MEDS ORDERED: Levofloxacin 500 mg/D5W 100 ml Premix Bag ONE (07:05)
[2020-03-11] MEDS ORDERED: Promethazine HCl 25 MG/ML VIAL IM PRN ×2 (09:21→10:31)
[2020-03-11] MEDS ORDERED: Promethazine HCl 25 MG/ML VIAL SLOW IVP PRN (09:21)
[2020-03-11] MEDS ORDERED: Ondansetron HCl/PF 4 MG/2 ML Vial IVP PRN (09:21)
[2020-03-11] MEDS ORDERED: Promethazine HCl 25 MG/ML VIAL ONE (09:52)
[2020-03-11] MEDS ORDERED: Lidocaine 1% PF 5 ML VIAL ONE (10:14)
[2020-03-11] MEDS ORDERED: Dexamethasone 20 MG/5 ML VIAL ONE (10:14)
[2020-03-11] MEDS ORDERED: Glycopyrrolate 0.2 MG/ML 5 ML SYRINGE ONE (10:14)
[2020-03-11] MEDS ORDERED: PROPOFOL 200 MG/20 ML VIAL ONE (10:14)
[2020-03-11] MEDS ORDERED: Ondansetron PF 4 MG/2 ML Vial ONE (10:14)
[2020-03-11] MEDS ORDERED: ePHEDrine 50 MG/ML VIAL ONE (10:14)
[2020-03-11] MEDS ORDERED: PHENYLEPHRINE-NS 100 MCG/ML 10 ML SYRINGE ONE (10:14)
[2020-03-11] MEDS ORDERED: Rocuronium Bromide 10 MG/ML (10ML VIAL) ONE (10:14)
[2020-03-11] MEDS ORDERED: Sodium Chloride 0.9% 1,000 ML IV SCH (10:31)
[2020-03-11] MEDS ORDERED: Acetaminophen 325 MG TAB PO PRN (10:31)
[2020-03-11] MEDS ORDERED: Phenylephrine 10 MG/NS 250 ML 250 ML IVPB PRN (10:31)
[2020-03-11] MEDS ORDERED: HYDROcodone/Acetaminophen 5/325 mg Tablet PO PRN ×2 (10:31)
[2020-03-11] MEDS ORDERED: Ondansetron PF 4 MG/2 ML Vial IVP PRN (10:31)
[2020-03-11] MEDS ORDERED: Dextrose 50% Abboject 50 ML SYRINGE SLOW IVP PRN (10:31)
[2020-03-11] MEDS ORDERED: Fentanyl 100 MCG/2 ML VIAL SLOW IVP PRN ×2 (10:31)
[2020-03-11] MEDS ORDERED: Dextrose 5% in Water 1,000 ML IV PRN (10:31)
[2020-03-11] MEDS: Glimepiride 4 MG TAB PO SCH (11:33)
[2020-03-11] MEDS ORDERED: HYDROcodone/Acetaminophen 5/325 mg Tablet ONE (12:12)
[2020-03-11] MEDS: Hydrochlorothiazide 25 MG TAB PO SCH (12:15)
[2020-03-11] MEDS: Aspirin Chewable 81 MG TAB PO SCH (12:15)
[2020-03-11] MEDS: Losartan 25 MG TAB PO SCH ×2 (12:16→19:36)
[2020-03-11] MEDS ORDERED: Insulin Regular 300 UNITS/3 ML VIAL ONE (12:23)
[2020-03-11] MEDS: Insulin Regular 300 UNITS/3 ML VIAL SC PRN ×2 (12:25→19:34)
--- NOTE | 2020-03-11 14:43 | OP ---
DATE OF PROCEDURE: 03/11/2020 PREOPERATIVE DIAGNOSIS: Left carotid stenosis. PROCEDURE PERFORMED: Left carotid endarterectomy with primary closure. ANESTHESIA: General. ESTIMATED BLOOD LOSS: 100. DESCRIPTION OF PROCEDURE: After adequate anesthesia had been obtained, shoulder roll was placed. Head turned to the right and the patient prepped and draped after ultrasound examination. Incision was made generously due to the patient's morbid obesity and expected difficult exposure. Common internal and external carotid arteries were mobilized. Hypoglossal nerve was not identified. After 10,000 units of heparin and a good ACT level, clamps were applied. Arteriotomy was performed. A 12-Croatian shunt was placed and back bleeding was suboptimal. Following placement of the shunt, endarterectomy was performed and as expected, exposure was difficult due to the location of the stenosis and the obesity. After complete removal of the plaque and irrigating thoroughly and removing any loose debris, it was elected to close primarily, which was done removing the shunt prior to completing the suture line. The flow was restored up the external and then internal carotid artery. Following this, protamine was given to partially reverse the heparin. After obtaining good hemostasis, the wound was irrigated and closed in layers. Job ID: [id number]
[2020-03-11] MEDS: Carvedilol 6.25 MG TAB PO SCH (17:32)
[2020-03-11 17:34] VITALS: BP 116/64
[2020-03-11] MEDS ORDERED: Non-Formulary Item 1 EACH (Losartan Potassium [Cozaar] 50 MG Tab) PO SCH (21:00)
[2020-03-11] MEDS ORDERED: Atorvastatin Calcium 20 MG TAB PO SCH (21:00)
[2020-03-12] MEDS: Insulin Regular 300 UNITS/3 ML VIAL SC PRN (05:33)
[2020-03-12 07:24] VITALS: TEMP 98.2
[2020-03-12] MEDS: Carvedilol 6.25 MG TAB PO SCH (07:56)
[2020-03-12] MEDS: Hydrochlorothiazide 25 MG TAB PO SCH (07:56)
[2020-03-12] MEDS: Aspirin Chewable 81 MG TAB PO SCH (07:57)
[2020-03-12] MEDS: Losartan 25 MG TAB PO SCH (07:57)
[2020-03-12] MEDS: Glimepiride 4 MG TAB PO SCH (07:57)
[2020-03-12] MEDS ORDERED: Glimepiride 4 MG TAB PO SCH (09:00)
[2020-03-12] MEDS ORDERED: FLU VACC QS2020-21(6MOS UP)/PF 60 MCG/0.5 ML SYRINGE IM ONE (09:00)
--- NOTE | 2020-03-13 11:53 | DIS ---
DATE OF ADMISSION: 03/11/2020 DATE OF DISCHARGE: 03/12/2020 HOSPITAL COURSE: The patient underwent a left carotid endarterectomy. Postoperative neurologic status was baseline and normal. The patient's vital signs were stable with bradycardia in the 50s while on his medications including Coreg. He will be discharged to home today to resume his home medicines, and discharge and followup instructions have been given. Job ID: [id number]
== END 2020-03-12 10:15 | disposition home or self-care (01) | DRG 38 ==
LOC: SURG A 03-11 05:51 → IMCU/EMU 03-11 15:49
PROVIDERS: ADMIT Thoracic Surgery (Cardiothoracic Vascular Surgery); ATTEND Thoracic Surgery (Cardiothoracic Vascular Surgery)
PROC: 03CL0ZZ Extirpation of Matter from Left Internal Carotid Artery, Open Approach (ICD-10-PCS; principal; 2020-03-11)
DX: I65.22 Occlusion and stenosis of left carotid artery (principal); N18.4 Chronic kidney disease, stage 4 (severe); Z68.41 Body mass index [BMI] 40.0-44.9, adult; E11.22 Type 2 diabetes mellitus with diabetic chronic kidney disease; E78.5 Hyperlipidemia, unspecified; I12.9 Hypertensive chronic kidney disease with stage 1 through stage 4 chronic kidney disease, or unspecified chronic kidney disease; E11.51 Type 2 diabetes mellitus with diabetic peripheral angiopathy without gangrene; E66.01 Morbid (severe) obesity due to excess calories; I25.10 Atherosclerotic heart disease of native coronary artery without angina pectoris; Z20.828 Contact with and (suspected) exposure to other viral communicable diseases; R00.1 Bradycardia, unspecified; Z23 Encounter for immunization; Z90.5 Acquired absence of kidney; Z79.899 Other long term (current) drug therapy; Z88.0 Allergy status to penicillin; Z79.82 Long term (current) use of aspirin; Z85.528 Personal history of other malignant neoplasm of kidney; Z85.828 Personal history of other malignant neoplasm of skin; Z95.1 Presence of aortocoronary bypass graft; Z87.891 Personal history of nicotine dependence; Z79.4 Long term (current) use of insulin
CPT/HCPCS: 36416; 90471; 90662; G0008; J1100; J1642; J1644; J1815; J1956; J2370; J2405; J2550; J2704; J2720; J3010; J3490

== ENCOUNTER 2020-11-23 01:50 | Inpatient (IN) | payer MEDICARE ==
[2020-11-23 02:51] LABS: #Lymphocytes 1.2 thou/uL (1.20-3.40); #Monocytes 0.7 thou/uL (0.11-0.59); #Neutrophils 6.4 thou/uL (1.40-6.50); %Basophils 0.1 % (0.0-1.0); %Eosinophils 0.1 % (0.0-10.0); %Lymphocytes 14.6 % (21.0-51.0); %Monocytes 8.3 % (0.0-10.0); Hemoglobin 17.2 g/dL (14.0-18.0); Mean Corpuscular Volume 93.8 fL (78.0-98.0); Platelet Count 178 thou/uL (130-400); RBC Distribution Width 13.4 % (11.5-14.5); Red Blood Cell (RBC) Count 5.56 mill/uL (4.70-6.10); White Blood Cell (WBC) Count 8.3 thou/uL (4.8-10.8)
[2020-11-23 03:33] LABS: CKMB 1.3 ng/mL (0-6.6)
[2020-11-23 03:37] LABS: ALT (SGPT) 20 U/L (8-55); AST (SGOT) 39 U/L (5-34); Albumin 3.7 g/dL (3.4-4.8); Alkaline Phosphatase 71 U/L (40-110); Anion Gap 15 mmol/L (10-20); BUN (Urea Nitrogen) 33 mg/dL (8.4-25.7); Bilirubin, Total 0.6 mg/dL (0.2-1.2); Calc. Creatinine Clearance 0 mL/min (70-130); Calcium 8.8 mg/dL (7.8-10.44); Carbon Dioxide 23 mmol/L (23-31); Chloride 97 mmol/L (98-107); Globulin 3.3 g/dL (2.4-3.5); Glucose 124 mg/dL (80-115); Potassium 4.4 mmol/L (3.5-5.1); Sodium 131 mmol/L (136-145)
[2020-11-23] MEDS ORDERED: Aspirin 325 MG TAB ONE (04:32)
[2020-11-23 06:08] LABS: SARS-CoV-2 NAA Rapid Test DETECTED (NotDetected)
[2020-11-23 06:19] LABS: Troponin I 0.056 ng/mL (< 0.028)
[2020-11-23 06:52] VITALS: BMI 43.2
[2020-11-23 09:03] LABS: Troponin I 0.056 ng/mL (< 0.028)
[2020-11-23] MEDS ORDERED: Enoxaparin Sodium 40 MG/0.4 ML SYRINGE SC SCH (10:45)
[2020-11-23] MEDS ORDERED: Ondansetron ODT 4 MG TAB PO PRN (11:04)
[2020-11-23] MEDS ORDERED: Acetaminophen 325 MG TAB PO PRN (11:04)
[2020-11-23] MEDS ORDERED: [UNRECOGNIZED DRUG - OTHER] FS PRN (11:06)
[2020-11-23] MEDS ORDERED: PAPAVERINE FS PRN (11:06)
[2020-11-23] MEDS ORDERED: Fluticasone Propionate Nasal Spray 16 gm Bottle NASAL PRN (11:06)
[2020-11-23] MEDS ORDERED: ALPROSTADIL FS PRN (11:06)
[2020-11-23] MEDS ORDERED: Albuterol Sulfate 2.5 mg/3 ml Neb EZPAP PRN (11:06)
[2020-11-23] MEDS ORDERED: Dextrose 5% in Water 1,000 ML IV PRN ×2 (11:07→11:08)
[2020-11-23] MEDS ORDERED: Dextrose 50% Abboject 50 ML SYRINGE SLOW IVP PRN ×2 (11:07→11:08)
[2020-11-23] MEDS: Sodium Chloride 0.9% 1,000 ML IV SCH ×2 (15:19→21:08)
[2020-11-23] MEDS: Dexamethasone 10 MG in Sodium Chloride 0.9% 50 ML IVPB SCH (15:19)
[2020-11-23] MEDS: Benzonatate 100 MG CAP PO PRN (21:08)
[2020-11-23] MEDS: Atorvastatin Calcium 20 MG TAB PO SCH (21:08)
[2020-11-24] MEDS: Sodium Chloride 0.9% 1,000 ML IV SCH ×2 (02:12→15:39)
[2020-11-24] MEDS: Aspirin 325 MG TAB PO SCH (08:00)
[2020-11-24] MEDS: Fenofibrate Nanocrystallized 145 MG TAB PO SCH (08:00)
[2020-11-24] MEDS: Loratadine 10 MG TAB PO SCH (08:00)
[2020-11-24] MEDS: Allopurinol 100 MG TAB PO SCH (08:02)
[2020-11-24] MEDS ORDERED: Enoxaparin Sodium 40 MG/0.4 ML SYRINGE SC SCH (09:00)
[2020-11-24 10:22] LABS: #Lymphocytes 0.6 thou/uL (1.20-3.40); #Monocytes 0.4 thou/uL (0.11-0.59); #Neutrophils 5.2 thou/uL (1.40-6.50); %Basophils 0.3 % (0.0-1.0); %Eosinophils 0.1 % (0.0-10.0); %Lymphocytes 9.5 % (21.0-51.0); %Monocytes 6.6 % (0.0-10.0); %Neutrophils 83.6 % (42.0-75.0); Hemoglobin 16.9 g/dL (14.0-18.0); Mean Corpuscular HGB CONC 31.2 g/dL (32.0-36.0); Mean Corpuscular Hemoglobin 29.5 pg (27.0-31.0); Mean Corpuscular Volume 94.6 fL (78.0-98.0); Mean Platelet Volume 8.1 fL (7.4-10.4); Platelet Count 176 thou/uL (130-400); RBC Distribution Width 13.6 % (11.5-14.5); Red Blood Cell (RBC) Count 5.72 mill/uL (4.70-6.10); White Blood Cell (WBC) Count 6.2 thou/uL (4.8-10.8)
[2020-11-24 10:52] LABS: Anion Gap 13 mmol/L (10-20); BUN (Urea Nitrogen) 36 mg/dL (8.4-25.7); Calc. Creatinine Clearance 81 mL/min (70-130); Calcium 8.5 mg/dL (7.8-10.44); Carbon Dioxide 29 mmol/L (23-31); Chloride 99 mmol/L (98-107); Glucose 207 mg/dL (80-115); Potassium 4.3 mmol/L (3.5-5.1); Sodium 137 mmol/L (136-145)
[2020-11-24] MEDS: guaiFENesin/Codeine 200 mg/20 mg 10 ml Cup PO SCH ×2 (15:38→20:54)
[2020-11-24] MEDS: Dexamethasone 10 MG in Sodium Chloride 0.9% 50 ML IVPB SCH ×2 (15:39→16:10)
[2020-11-24] MEDS: HumaLOG 300 UNITS/3 ML VIAL SC PRN (18:02)
[2020-11-24] MEDS ORDERED: Sodium Chloride 0.9% 1,000 ML IV SCH (18:15)
[2020-11-24] MEDS: Atorvastatin Calcium 20 MG TAB PO SCH (20:55)
[2020-11-24] MEDS: Benzonatate 100 MG CAP PO PRN (20:55)
[2020-11-24] MEDS: Enoxaparin Sodium 40 MG/0.4 ML SYRINGE SC SCH (20:55)
[2020-11-24] MEDS: Colchicine 0.3 MG TAB PO SCH (20:55)
[2020-11-24] MEDS ORDERED: Colchicine 0.6 MG TAB PO SCH (21:00)
[2020-11-25] MEDS: guaiFENesin/Codeine 200 mg/20 mg 10 ml Cup PO SCH ×4 (03:00→20:29)
[2020-11-25] MEDS: HumaLOG 300 UNITS/3 ML VIAL SC PRN ×3 (06:08→16:50)
[2020-11-25] MEDS: Aspirin 325 MG TAB PO SCH (08:26)
[2020-11-25] MEDS: Enoxaparin Sodium 40 MG/0.4 ML SYRINGE SC SCH ×2 (08:27→20:30)
[2020-11-25] MEDS: Fenofibrate Nanocrystallized 145 MG TAB PO SCH (08:27)
[2020-11-25] MEDS: Colchicine 0.3 MG TAB PO SCH (08:27)
[2020-11-25] MEDS: Furosemide 40 MG/4 ML VIAL SLOW IVP SCH (08:28)
[2020-11-25] MEDS: Loratadine 10 MG TAB PO SCH (08:29)
[2020-11-25] MEDS: Zinc Sulfate 220 MG CAP PO SCH (08:30)
[2020-11-25] MEDS: Allopurinol 100 MG TAB PO SCH (08:32)
[2020-11-25] MEDS ORDERED: Ascorbic Acid 500 mg Chewable Tablet PO SCH (09:00)
[2020-11-25] MEDS: Ivermectin 3 MG TAB PO SCH (09:13)
[2020-11-25 09:45] LABS: #Lymphocytes 0.7 thou/uL (1.20-3.40); #Monocytes 0.6 thou/uL (0.11-0.59); #Neutrophils 9.4 thou/uL (1.40-6.50); %Eosinophils 0.1 % (0.0-10.0); %Lymphocytes 6.1 % (21.0-51.0); %Monocytes 5.5 % (0.0-10.0); %Neutrophils 88.4 % (42.0-75.0); Hemoglobin 17.9 g/dL (14.0-18.0); Mean Corpuscular HGB CONC 30.1 g/dL (32.0-36.0); Mean Corpuscular Hemoglobin 29.3 pg (27.0-31.0); Mean Corpuscular Volume 97.2 fL (78.0-98.0); Mean Platelet Volume 8.4 fL (7.4-10.4); Platelet Count 223 thou/uL (130-400); RBC Distribution Width 13.6 % (11.5-14.5); Red Blood Cell (RBC) Count 6.12 mill/uL (4.70-6.10); White Blood Cell (WBC) Count 10.6 thou/uL (4.8-10.8)
[2020-11-25 10:05] LABS: Anion Gap 13 mmol/L (10-20); BUN (Urea Nitrogen) 31 mg/dL (8.4-25.7); Calc. Creatinine Clearance 92 mL/min (70-130); Calcium 9.4 mg/dL (7.8-10.44); Carbon Dioxide 29 mmol/L (23-31); Chloride 100 mmol/L (98-107); Glucose 161 mg/dL (80-115); Sodium 138 mmol/L (136-145)
[2020-11-25 16:36] LABS: #Lymphocytes 0.7 thou/uL (1.20-3.40); #Monocytes 0.8 thou/uL (0.11-0.59); #Neutrophils 8.5 thou/uL (1.40-6.50); %Lymphocytes 6.7 % (21.0-51.0); %Monocytes 7.7 % (0.0-10.0); %Neutrophils 85.6 % (42.0-75.0); Hemoglobin 16.7 g/dL (14.0-18.0); Mean Corpuscular HGB CONC 30.6 g/dL (32.0-36.0); Mean Corpuscular Hemoglobin 29.1 pg (27.0-31.0); Mean Corpuscular Volume 94.9 fL (78.0-98.0); Mean Platelet Volume 8.4 fL (7.4-10.4); Platelet Count 184 thou/uL (130-400); RBC Distribution Width 13.4 % (11.5-14.5); Red Blood Cell (RBC) Count 5.76 mill/uL (4.70-6.10)
[2020-11-25] MEDS: Dexamethasone 10 MG in Sodium Chloride 0.9% 50 ML IVPB SCH (16:51)
[2020-11-25 16:55] LABS: Anion Gap 11 mmol/L (10-20); BUN (Urea Nitrogen) 33 mg/dL (8.4-25.7); Calc. Creatinine Clearance 82 mL/min (70-130); Calcium 8.8 mg/dL (7.8-10.44); Carbon Dioxide 29 mmol/L (23-31); Chloride 99 mmol/L (98-107); Glucose 180 mg/dL (80-115); Potassium 4.2 mmol/L (3.5-5.1); Sodium 135 mmol/L (136-145)
[2020-11-25] MEDS: Atorvastatin Calcium 20 MG TAB PO SCH (20:30)
[2020-11-25] MEDS: Benzonatate 100 MG CAP PO PRN (20:30)
[2020-11-25] MEDS: Colchicine 0.6 MG TAB PO SCH (20:30)
[2020-11-26 05:23] LABS: #Lymphocytes 0.6 thou/uL (1.20-3.40); #Monocytes 0.6 thou/uL (0.11-0.59); #Neutrophils 7.3 thou/uL (1.40-6.50); %Basophils 0.1 % (0.0-1.0); %Lymphocytes 7.3 % (21.0-51.0); %Monocytes 7.2 % (0.0-10.0); %Neutrophils 85.4 % (42.0-75.0); Hemoglobin 16.3 g/dL (14.0-18.0); Mean Corpuscular HGB CONC 31.2 g/dL (32.0-36.0); Mean Corpuscular Hemoglobin 29.7 pg (27.0-31.0); Mean Corpuscular Volume 95.3 fL (78.0-98.0); Mean Platelet Volume 8.1 fL (7.4-10.4); Platelet Count 215 thou/uL (130-400); RBC Distribution Width 13.5 % (11.5-14.5); Red Blood Cell (RBC) Count 5.49 mill/uL (4.70-6.10); White Blood Cell (WBC) Count 8.5 thou/uL (4.8-10.8)
[2020-11-26 05:52] LABS: Anion Gap 14 mmol/L (10-20); BUN (Urea Nitrogen) 33 mg/dL (8.4-25.7); CRP (Inflammatory) 7.29 mg/dL (= or < 0.5); Calc. Creatinine Clearance 89 mL/min (70-130); Calcium 8.7 mg/dL (7.8-10.44); Carbon Dioxide 27 mmol/L (23-31); Chloride 99 mmol/L (98-107); Glucose 242 mg/dL (80-115); Potassium 4.9 mmol/L (3.5-5.1); Sodium 135 mmol/L (136-145)
[2020-11-26] MEDS: HumaLOG 300 UNITS/3 ML VIAL SC PRN ×2 (07:09→21:38)
[2020-11-26] MEDS: Fenofibrate Nanocrystallized 145 MG TAB PO SCH (08:41)
[2020-11-26] MEDS: Enoxaparin Sodium 40 MG/0.4 ML SYRINGE SC SCH ×2 (08:41→20:52)
[2020-11-26] MEDS: Furosemide 40 MG/4 ML VIAL SLOW IVP SCH (08:41)
[2020-11-26] MEDS: Colchicine 0.6 MG TAB PO SCH ×2 (08:41→20:54)
[2020-11-26] MEDS: Allopurinol 100 MG TAB PO SCH (08:42)
[2020-11-26] MEDS: Loratadine 10 MG TAB PO SCH (08:42)
[2020-11-26] MEDS: Aspirin 325 MG TAB PO SCH (08:42)
[2020-11-26] MEDS: Zinc Sulfate 220 MG CAP PO SCH (08:42)
[2020-11-26] MEDS: Ivermectin 3 MG TAB PO SCH (08:44)
[2020-11-26] MEDS: Benzonatate 100 MG CAP PO PRN (13:31)
[2020-11-26] MEDS: Dexamethasone 10 MG in Sodium Chloride 0.9% 50 ML IVPB SCH (16:33)
[2020-11-26] MEDS ORDERED: HumaLOG 300 UNITS/3 ML VIAL SC PRN (17:15)
[2020-11-26] MEDS: guaiFENesin/Codeine 200 mg/20 mg 10 ml Cup PO SCH (18:25)
[2020-11-26] MEDS: Atorvastatin Calcium 20 MG TAB PO SCH (20:51)
[2020-11-27] MEDS: guaiFENesin/Codeine 200 mg/20 mg 10 ml Cup PO SCH ×4 (00:23→17:03)
[2020-11-27] MEDS: HumaLOG 300 UNITS/3 ML VIAL SC PRN ×4 (06:19→20:53)
[2020-11-27] MEDS ORDERED: predniSONE 20 MG TAB PO SCH (08:45)
[2020-11-27] MEDS: Fenofibrate Nanocrystallized 145 MG TAB PO SCH (08:59)
[2020-11-27] MEDS: Zinc Sulfate 220 MG CAP PO SCH (08:59)
[2020-11-27] MEDS: Colchicine 0.6 MG TAB PO SCH (08:59)
[2020-11-27] MEDS: Allopurinol 100 MG TAB PO SCH (08:59)
[2020-11-27] MEDS: Loratadine 10 MG TAB PO SCH (09:00)
[2020-11-27] MEDS: Enoxaparin Sodium 40 MG/0.4 ML SYRINGE SC SCH ×2 (09:00→20:51)
[2020-11-27] MEDS: Aspirin 325 MG TAB PO SCH (09:00)
[2020-11-27] MEDS: Furosemide 40 MG/4 ML VIAL SLOW IVP SCH (09:00)
[2020-11-27] MEDS: predniSONE 20 MG TAB PO SCH ×2 (09:03→17:04)
[2020-11-27 09:54] LABS: #Lymphocytes 0.5 thou/uL (1.20-3.40); #Monocytes 0.6 thou/uL (0.11-0.59); #Neutrophils 6.8 thou/uL (1.40-6.50); %Basophils 0.5 % (0.0-1.0); %Eosinophils 0.1 % (0.0-10.0); %Lymphocytes 6.4 % (21.0-51.0); %Monocytes 8.1 % (0.0-10.0); Hemoglobin 17.1 g/dL (14.0-18.0); Mean Corpuscular HGB CONC 30.9 g/dL (32.0-36.0); Mean Corpuscular Hemoglobin 29.8 pg (27.0-31.0); Mean Corpuscular Volume 96.4 fL (78.0-98.0); Mean Platelet Volume 8.2 fL (7.4-10.4); Platelet Count 268 thou/uL (130-400); RBC Distribution Width 13.2 % (11.5-14.5); Red Blood Cell (RBC) Count 5.73 mill/uL (4.70-6.10)
[2020-11-27 10:09] LABS: Anion Gap 14 mmol/L (10-20); BUN (Urea Nitrogen) 33 mg/dL (8.4-25.7); Calc. Creatinine Clearance 92 mL/min (70-130); Carbon Dioxide 32 mmol/L (23-31); Chloride 95 mmol/L (98-107); Glucose 182 mg/dL (80-115); Sodium 137 mmol/L (136-145)
[2020-11-27] MEDS: Mometasone 200 MCG/Formoterol 5 MCG 120 PUFF INHALER INH SCH (18:42)
[2020-11-27] MEDS: Atorvastatin Calcium 20 MG TAB PO SCH (20:50)
[2020-11-27] MEDS ORDERED: guaiFENesin/Codeine 200 mg/20 mg 10 ml Cup PO PRN (21:53)
[2020-11-28 04:17] LABS: Anion Gap 9 mmol/L (10-20); BUN (Urea Nitrogen) 38 mg/dL (8.4-25.7); Calc. Creatinine Clearance 92 mL/min (70-130); Calcium 7.9 mg/dL (7.8-10.44); Carbon Dioxide 32 mmol/L (23-31); Chloride 97 mmol/L (98-107); Glucose 230 mg/dL (80-115); Magnesium 2.2 mg/dL (1.6-2.6); Sodium 134 mmol/L (136-145)
[2020-11-28 04:20] LABS: Troponin I Less than 0.010 ng/mL (< 0.028)
[2020-11-28] MEDS: HumaLOG 300 UNITS/3 ML VIAL SC PRN ×2 (06:19→11:51)
[2020-11-28] MEDS: Mometasone 200 MCG/Formoterol 5 MCG 120 PUFF INHALER INH SCH (06:20)
[2020-11-28] MEDS: Allopurinol 100 MG TAB PO SCH (07:48)
[2020-11-28] MEDS: Enoxaparin Sodium 40 MG/0.4 ML SYRINGE SC SCH (07:48)
[2020-11-28] MEDS: Loratadine 10 MG TAB PO SCH (07:48)
[2020-11-28] MEDS: Zinc Sulfate 220 MG CAP PO SCH (07:48)
[2020-11-28] MEDS: Fenofibrate Nanocrystallized 145 MG TAB PO SCH (07:48)
[2020-11-28] MEDS: predniSONE 20 MG TAB PO SCH (07:49)
[2020-11-28] MEDS: Aspirin 325 MG TAB PO SCH (07:49)
[2020-11-28] MEDS: Colchicine 0.6 MG TAB PO SCH (07:51)
[2020-11-28] MEDS ORDERED: hydrALAZINE 20 MG/ML VIAL SLOW IVP PRN (08:14)
[2020-11-28] MEDS ORDERED: Non-Formulary Item 1 EACH (Carvedilol [Coreg] 12.5 MG Tablet) PO SCH (09:00)
[2020-11-28] MEDS ORDERED: Hydrochlorothiazide 25 MG TAB PO SCH (09:00)
[2020-11-28] MEDS ORDERED: Amlodipine 5 MG TAB PO SCH (09:00)
[2020-11-28] MEDS ORDERED: Carvedilol 6.25 MG TAB PO SCH (09:00)
[2020-11-28 11:12] VITALS: BP 126/74; TEMP 98.2
== END 2020-11-28 16:00 | disposition home or self-care (01) | DRG 177 ==
LOC: ERS 01:50 → 2SW 04:23 → OBSVTOIN 11-24 11:21
PROVIDERS: ADMIT Student in an Organized Health Care Education/Training Program; ATTEND Student in an Organized Health Care Education/Training Program
PROC: 5A09357 Assistance with Respiratory Ventilation, Less than 24 Consecutive Hours, Continuous Positive Airway Pressure (ICD-10-PCS; principal; 2020-11-24)
PROC: 8E0ZXY6 Isolation (ICD-10-PCS; 2020-11-24)
DX: U07.1 COVID-19 (principal); J12.82 Pneumonia due to coronavirus disease 2019; J96.01 Acute respiratory failure with hypoxia; E87.1 Hypo-osmolality and hyponatremia; N17.9 Acute kidney failure, unspecified; Z68.41 Body mass index [BMI] 40.0-44.9, adult; E78.00 Pure hypercholesterolemia, unspecified; N18.30 Chronic kidney disease, stage 3 unspecified; R77.8 Other specified abnormalities of plasma proteins; E11.22 Type 2 diabetes mellitus with diabetic chronic kidney disease; I25.10 Atherosclerotic heart disease of native coronary artery without angina pectoris; J45.909 Unspecified asthma, uncomplicated; I12.9 Hypertensive chronic kidney disease with stage 1 through stage 4 chronic kidney disease, or unspecified chronic kidney disease; G47.33 Obstructive sleep apnea (adult) (pediatric); E66.01 Morbid (severe) obesity due to excess calories; E86.9 Volume depletion, unspecified; Z83.1 Family history of other infectious and parasitic diseases; Z95.1 Presence of aortocoronary bypass graft; Z85.528 Personal history of other malignant neoplasm of kidney; Z90.5 Acquired absence of kidney; Z90.49 Acquired absence of other specified parts of digestive tract; Z85.828 Personal history of other malignant neoplasm of skin; Z98.52 Vasectomy status; Z87.891 Personal history of nicotine dependence; Z98.890 Other specified postprocedural states; Z88.0 Allergy status to penicillin; Z79.899 Other long term (current) drug therapy; Z79.82 Long term (current) use of aspirin; Z79.4 Long term (current) use of insulin
CPT/HCPCS: 0240U; 36415; 36416; 71045; 78451; 80048; 80053; 82553; 82728; 83735; 83880; 84145; 84484; 85025; 85379; 86140; 93005; 93010; 96372; 96374; A9540; G0378; J1100; J1650; J1815; J1940; J7512

== ENCOUNTER 2021-03-27 12:53 | Outpatient (CLI) | payer MEDICARE | END 2021-03-27 12:54 | disposition home or self-care (01) | LOC: BICCT 12:53 | PROVIDERS: ATTEND Neurological Surgery | DX: I62.9 Nontraumatic intracranial hemorrhage, unspecified (principal) | CPT/HCPCS: 70450 ==

== ENCOUNTER 2023-04-06 05:43 | Day surgery (SDC) | payer MEDICARE ==
[2023-04-05 15:34] VITALS: BMI 42.3
[2023-04-06 06:31] LABS: #Basophils 0.1 thou/uL (0.0-0.2); #Eosinphils 0.2 thou/uL (0.0-0.7); #Monocytes 0.6 thou/uL (0.11-0.59); %Basophils 0.8 % (0.0-1.0); %Eosinophils 2.5 % (0.0-10.0); %Lymphocytes 20.3 % (21.0-51.0); %Monocytes 9.9 % (0.0-10.0); %Neutrophils 66.3 % (42.0-75.0); Hematocrit 42.8 % (42.0-52.0); Hemoglobin 14.2 g/dL (14.0-18.0); Mean Corpuscular HGB CONC 33.2 g/dL (32.0-36.0); Mean Corpuscular Hemoglobin 31.8 pg (27.0-31.0); Mean Corpuscular Volume 95.7 fl (78.0-98.0); Mean Platelet Volume 10.6 fL (7.4-10.4); Platelet Count 219 10x3/uL (130-400); RBC Distribution Width 13.2 % (11.5-14.5); Red Blood Cell (RBC) Count 4.47 mill/uL (4.70-6.10); White Blood Cell (WBC) Count 6.1 10x3/uL (4.8-10.8)
== END 2023-04-06 10:00 | disposition home or self-care (01) ==
LOC: SDC 05:43
PROVIDERS: ATTEND Thoracic Surgery (Cardiothoracic Vascular Surgery)
PROC: 06H03DZ Insertion of Intraluminal Device into Inferior Vena Cava, Percutaneous Approach (ICD-10-PCS; principal; 2023-04-06)
DX: I26.99 Other pulmonary embolism without acute cor pulmonale (principal); I10 Essential (primary) hypertension; E11.9 Type 2 diabetes mellitus without complications; E78.5 Hyperlipidemia, unspecified; E66.9 Obesity, unspecified; Z68.41 Body mass index [BMI] 40.0-44.9, adult
CPT/HCPCS: 37191; 85025; C1769; C1880; C1894 ×2

== ENCOUNTER 2023-06-29 09:42 | Outpatient (CLI) | payer MEDICARE | END 2023-06-29 09:43 | disposition home or self-care (01) | LOC: RAD 09:42 | PROVIDERS: ATTEND Internal Medicine Critical Care Medicine | DX: R06.00 Dyspnea, unspecified (principal); R91.1 Solitary pulmonary nodule | CPT/HCPCS: 71046 ==